=== PATIENT | female | born 1985 | race Caucasian/White ===

== ENCOUNTER 2023-12-31 13:33 | Emergency (ER) | payer OTHER ==
[2023-12-31 13:44] VITALS: BP 112/76; PULSE 79; RESP 18; TEMP 98.3; BMI 24.9
[2023-12-31] MEDS ORDERED: DIPHTH,PERTUSS(ACELL),TET 0.5 ML DISP.SYRIN IM ONE (14:41)
[2023-12-31] MEDS ORDERED: ACETAMINOPHEN 325 MG TABLET (FP) ONE (14:41)
[2023-12-31] MEDS: ACETAMINOPHEN 500 MG TABLET (FP) PO ONE (14:45)
[2023-12-31] MEDS: DIPHTH,PERTUSS(ACELL),TET 0.5 ML DISP.SYRIN IM ONE (14:45)
== END 2023-12-31 14:46 | disposition home or self-care (01) ==
LOC: JERFT 13:33
PROC: 0HQ1XZZ Repair Face Skin, External Approach (ICD-10-PCS; principal; 2023-12-31)
PROC: 3E0234Z Introduction of Serum, Toxoid and Vaccine into Muscle, Percutaneous Approach (ICD-10-PCS; 2023-12-31)
DX: S01.112A Laceration without foreign body of left eyelid and periocular area, initial encounter (principal); R42 Dizziness and giddiness; W22.8XXA Striking against or struck by other objects, initial encounter; Z23 Encounter for immunization
CPT/HCPCS: 12011-25; 90471; 90715; 99282-25

== ENCOUNTER 2024-01-08 15:49 | Emergency (ER) | payer OTHER ==
[2024-01-08 15:54] VITALS: BP 97/69; PULSE 86; RESP 20; TEMP 97.8; BMI 25.8
== END 2024-01-08 16:41 | disposition home or self-care (01) ==
LOC: JERFT 15:49
DX: Z48.02 Encounter for removal of sutures (principal)
CPT/HCPCS: 99281-25